=== PATIENT | male | born 1995 | race African-American/Black ===

== ENCOUNTER 2019-09-11 07:29 | Emergency (ER) | payer MEDICAID, OTHER ==
[~2019-09-11] VITALS: Ht 177.8 cm; Wt 99.8 kg
== END 2019-09-11 10:51 | disposition left against medical advice (07) ==
LOC: ER 07:29 → EDBD 07:29 → ER 09:13
DX: Z04.6 Encounter for general psychiatric examination, requested by authority (principal); Z53.21 Procedure and treatment not carried out due to patient leaving prior to being seen by health care provider

== ENCOUNTER 2021-03-13 16:50 | Emergency (ER) | payer MEDICAID, OTHER ==
[~2021-03-13] VITALS: Ht 180.3 cm; Wt 127.0 kg
[2021-03-13 16:51] VITALS: BP 126/69
== END 2021-03-13 21:07 | disposition left against medical advice (07) ==
LOC: ER 16:56
DX: S01.81XA Laceration without foreign body of other part of head, initial encounter (principal); Z53.21 Procedure and treatment not carried out due to patient leaving prior to being seen by health care provider; X58.XXXA Exposure to other specified factors, initial encounter; Y93.89 Activity, other specified; Y92.89 Other specified places as the place of occurrence of the external cause; Y99.8 Other external cause status

== ENCOUNTER 2022-07-16 14:27 | Emergency (ER) | payer MEDICAID, OTHER ==
[~2022-07-16] VITALS: Ht 177.8 cm; Wt 173.7 kg
[2022-07-16 14:46] VITALS: BP 135/86
[2022-07-16] MEDS ORDERED: IBUP800T27 PO (17:15)
== END 2022-07-16 17:40 | disposition home or self-care (01) ==
LOC: ER 14:27
DX: M79.662 Pain in left lower leg (principal)
CPT/HCPCS: 73590; 93971